=== PATIENT | female | born 1965 | race African-American/Black ===

== ENCOUNTER 2019-04-26 09:13 | Day surgery (SDC) | payer OTHER ==
[2019-04-26 09:40] VITALS: TEMP 97.9
[2019-04-26] MEDS ORDERED: PROPOFOL 20 ML ONE ×2 (10:08)
[2019-04-26] MEDS ORDERED: LIDOCAINE HCL/PF 2% SDV 5ML VIAL ONE (10:08)
[2019-04-26 11:22] VITALS: BP 120/80; PULSE 79
--- NOTE | 2019-04-28 18:22 | PATH ---
Surgical Pathology Report Patient Name: RAN FRAGA [facility]. Rec. #: [id number] /Age/Gender: 1965 (Age: 53) / F Account: [id number] Location: [facility] Taken: 04/26/2019 Received: 04/26/2019 Reported: 04/28/2019 Physicians: Tarah Lanier M.D. Specimen(s) Received A: RANDOM CECUM & ASCENDING COLON B: RANDOM TRANSVERSE COLON C: RANDOM DESCENDING COLON D: POLYP SIGMOID COLON AT 20 CM E: RANDOM RECTUM Clinical History Screening Postoperative diagnosis: Thickening of appendiceal orifice, colon polyps, hemorrhoids Final Diagnosis A. CECUM AND ASCENDING COLON, RANDOM, BIOPSY: POLYPOID COLONIC MUCOSA WITH PROMINENT LYMPHOID AGGREGATE. B. TRANSVERSE COLON, RANDOM, BIOPSY: COLONIC MUCOSA WITH MILD SUPERFICIAL HYPERPLASTIC FEATURES. C. DESCENDING COLON, RANDOM, BIOPSY: COLONIC MUCOSA WITH PROMINENT LYMPHOID AGGREGATE. D. SIGMOID COLON, 20 CM, POLYP, BIOPSY: HYPERPLASTIC POLYP. E. RECTUM, RANDOM, BIOPSY: COLONIC MUCOSA WITH MILD FOCAL SUPERFICIAL HYPERPLASTIC FEATURES. Electronically Signed Tarah Medina M.D. Gross Description A. Received in formalin, labeled "random cecum and ascending colon" are 2 [place], irregular portions of soft tissue measuring 0.2 and 0.3 cm. in greatest dimension. The specimens are submitted in toto in one cassette. B. Received in formalin, labeled "random transverse colon" are 2 [place], irregular portions of soft tissue measuring 0.1 and 0.2 cm. in greatest dimension. The specimens are submitted in toto in one cassette. C. Received in formalin, labeled "random descending colon" are 2 [place], irregular portions of soft tissue measuring 0.3 cm. in greatest dimension. The specimens are submitted in toto in one cassette. D. Received in formalin, labeled "polyp sigmoid colon at 20 cm" are 4 [place], irregular portions of soft tissue ranging in size from 0.1-0.5 cm. in greatest dimension. The specimens are submitted in toto in one cassette. E. Received in formalin, labeled "random rectum" are 2 [place], irregular portions of soft tissue measuring 0.2 and 0.7 cm. in greatest dimension. The specimens are submitted in toto in one cassette. MLSZ/04/28/2019 sanml/04/28/2019
== END 2019-04-26 11:30 | disposition home or self-care (01) ==
LOC: FASU-ENDO 09:13
PROVIDERS: ATTEND Internal Medicine Gastroenterology
PROC: 0DBL8ZX Excision of Transverse Colon, Via Natural or Artificial Opening Endoscopic, Diagnostic (ICD-10-PCS; 2019-04-26)
PROC: 0DBN8ZX Excision of Sigmoid Colon, Via Natural or Artificial Opening Endoscopic, Diagnostic (ICD-10-PCS; 2019-04-26)
PROC: 0DBP8ZX Excision of Rectum, Via Natural or Artificial Opening Endoscopic, Diagnostic (ICD-10-PCS; 2019-04-26)
PROC: 0DBM8ZX Excision of Descending Colon, Via Natural or Artificial Opening Endoscopic, Diagnostic (ICD-10-PCS; 2019-04-26)
PROC: 0DBH8ZX Excision of Cecum, Via Natural or Artificial Opening Endoscopic, Diagnostic (ICD-10-PCS; 2019-04-26)
PROC: 0DBK8ZX Excision of Ascending Colon, Via Natural or Artificial Opening Endoscopic, Diagnostic (ICD-10-PCS; principal; 2019-04-26 10:18)
DX: K63.5 Polyp of colon (principal); K63.89 Other specified diseases of intestine; R19.7 Diarrhea, unspecified; K64.1 Second degree hemorrhoids
CPT/HCPCS: 88305-TC

== ENCOUNTER 2020-12-25 04:06 | Day surgery (SDC) | payer OTHER ==
[2020-12-24 10:52] VITALS: BMI 21.1
[2020-12-25] MEDS ORDERED: MIDAZOLAM HCL 2 MG/2 ML SINGLE DOSE VIAL ONE ×2 (11:33)
[2020-12-25] MEDS ORDERED: BUPIVACAINE LIPOSOME/PF (EXPAREL) 266 MG/20 ML VIAL ONE (11:34)
[2020-12-25] MEDS ORDERED: SODIUM CHLORIDE 0.9% P/F 10 ML VIAL IJ ONE ×2 (11:36)
[2020-12-25] MEDS ORDERED: ONDANSETRON 4 MG/2 ML VIAL IVPUSH PRN (12:40)
[2020-12-25] MEDS ORDERED: oxyCODONE HCL 5 MG TABLET PO PRN ×2 (12:40)
[2020-12-25] MEDS ORDERED: HYDROmorphone HCl 2 MG/ML VIAL IVPUSH PRN (12:42)
[2020-12-25] MEDS ORDERED: ACETAMINOPHEN INJECTION 100 ML IVPB ONE (12:44)
[2020-12-25] MEDS ORDERED: LACTATED RINGERS SOLUTION 1,000 ML IV SCH (12:45)
[2020-12-25] MEDS ORDERED: ceFAZolin SODIUM 1 GM VIAL IVPB ONE (13:00)
[2020-12-25] MEDS ORDERED: LABETALOL HCL 5 MG/1 ML (100MG/20 ML VIAL) ONE (13:28)
[2020-12-25] MEDS: HYDROmorphone HCl 2 MG/ML VIAL IVPUSH PRN ×4 (14:40→15:40)
[2020-12-25] MEDS ORDERED: HYDROmorphone HCl 2 MG/ML VIAL ONE (14:40)
[2020-12-25] MEDS ORDERED: ONDANSETRON 4 MG/2 ML VIAL ONE (16:29)
[2020-12-25 16:59] VITALS: TEMP 98.3
[2020-12-25 17:58] VITALS: BP 119/58; PULSE 76
== END 2020-12-25 18:00 | disposition home or self-care (01) ==
LOC: JASU-SURG 04:06
PROVIDERS: ATTEND Orthopaedic Surgery
PROC: 0MRP4JZ Replacement of Left Knee Bursa and Ligament with Synthetic Substitute, Percutaneous Endoscopic Approach (ICD-10-PCS; principal; 2020-12-25 12:45)
DX: S83.512A Sprain of anterior cruciate ligament of left knee, initial encounter (principal); X58.XXXA Exposure to other specified factors, initial encounter; Y93.9 Activity, unspecified; Y92.9 Unspecified place or not applicable; Y99.9 Unspecified external cause status
CPT/HCPCS: 29888; C1713; 88304-TC; 94760; J0131

== ENCOUNTER 2024-11-08 09:44 | Day surgery (SDC) | payer OTHER ==
[2024-11-06 16:13] VITALS: BMI 19.1
[2024-11-08 12:20] VITALS: RESP 18; TEMP 97
[2024-11-08 12:35] VITALS: BP 126/88; PULSE 82
== END 2024-11-08 13:09 | disposition home or self-care (01) ==
LOC: FASU-ENDO 09:44
PROVIDERS: ATTEND Internal Medicine Gastroenterology
PROC: 0DB78ZX Excision of Stomach, Pylorus, Via Natural or Artificial Opening Endoscopic, Diagnostic (ICD-10-PCS; 2024-11-08)
PROC: 0DB68ZX Excision of Stomach, Via Natural or Artificial Opening Endoscopic, Diagnostic (ICD-10-PCS; 2024-11-08)
PROC: 0DB48ZX Excision of Esophagogastric Junction, Via Natural or Artificial Opening Endoscopic, Diagnostic (ICD-10-PCS; 2024-11-08)
PROC: 0DB98ZX Excision of Duodenum, Via Natural or Artificial Opening Endoscopic, Diagnostic (ICD-10-PCS; principal; 2024-11-08 11:45)
DX: K29.50 Unspecified chronic gastritis without bleeding (principal); K20.90 Esophagitis, unspecified without bleeding; K44.9 Diaphragmatic hernia without obstruction or gangrene
CPT/HCPCS: 88305-TC; 88342-TC